=== PATIENT | female | born 1980 | race Caucasian/White ===

== ENCOUNTER 2017-04-17 09:50 | Day surgery (SDC) | payer BC ==
[~2017-04-17] VITALS: Ht 167.6 cm; Wt 72.6 kg
[~2017-04-17 09:50] MED LIST: NAPROSYN500 MG PO
[2017-04-17 10:23] VITALS: BP 132/71
[2017-04-17 10:38] LABS: HEMATOCRIT 36.8 % (36.0-46.0); HEMOGLOBIN 12.7 G/DL (11.9-15.5); MCV 92.5 FL (83-99)
[2017-04-17] MEDS ORDERED: MOTRIN600 MG PO (13:13)
[2017-04-17 14:00] VITALS: BP 132/64
[2017-04-17 14:46] VITALS: BP 135/61
== END 2017-04-17 14:45 | disposition home or self-care (01) ==
LOC: SDC 09:50
PROVIDERS: Obstetrics & Gynecology
DX: N93.9 Abnormal uterine and vaginal bleeding, unspecified (principal); N84.0 Polyp of corpus uteri; Z30.430 Encounter for insertion of intrauterine contraceptive device; N85.4 Malposition of uterus; Z87.891 Personal history of nicotine dependence
CPT/HCPCS: 84702; 85014; 85018; 86850; 86900; 86901; 88305; J0131; J1100; J1885; J2250; J2405; J3010; Q0175